=== PATIENT | male | born 1970 | race Caucasian/White ===

== ENCOUNTER 2022-04-14 09:33 | Emergency (ER) | payer BC | END 2022-04-14 10:13 | disposition home or self-care (01) | LOC: ER1 09:33 | DX: S60.455A Superficial foreign body of left ring finger, initial encounter (principal); I10 Essential (primary) hypertension; Z90.89 Acquired absence of other organs; W45.8XXA Other foreign body or object entering through skin, initial encounter; Z23 Encounter for immunization | CPT/HCPCS: 90471; 90715; 99283 ==